=== PATIENT | female | born 1940 | race Hispanic/Latino ===

== ENCOUNTER 2016-07-09 17:06 | Inpatient (IN) | payer MEDICARE ==
--- NOTE | 2016-07-09 18:15 | Emergency Department Report ---
Chief Complaint: Dyspnea/Respdistress Stated Complaint: COPD/FARHEEN Time Seen by Provider: 07/09/16 18:05 - HPI History of Present Illness: PT sent to ED for evaluation of cough x 2 months. PT states her symptoms are worse if she tries to lay flat. PT states she can not sleep unless she is sitting up in recliner. PT states she uses her nebs 3 times a day. PT has hx of CA and is on chemo - ROS Review of Systems: + cough, productive - clear + orthopnea + wheezing + subjective fever (occasionally) - chest pain - Exam Vital Signs: Vital Signs 07/09/16 17:30 Temperature 97.9 F Pulse Rate 92 H Respiratory 18 Rate Blood Pressure 125/56 O2 Sat by Pulse 97 Oximetry Physical Exam: PT is alert and appropriate + wheezing No acute resp distress LLE with scar and edema MSE screening note: Focused history and physical exam performed. Due to findings the following was ordered: labs, ekg, xr ED Disposition for MSE Condition: Stable Referrals: PRIMARY CARE, [Primary Care Provider] - 3-5 Days
[2016-07-09 18:42] LABS: Hematocrit 27.4 % (30.3-42.9); Hemoglobin 8.6 gm/dl (10.1-14.3); Mean Corpuscular HGB Conc 31 % (30-34); Mean Corpuscular Hemoglobin 33 pg (28-32); Mean Corpuscular Volume 106 fl (79-97); Platelet Count 77 K/mm3 (140-440); Red Blood Count 2.59 M/mm3 (3.65-5.03); White Blood Count 4.8 K/mm3 (4.5-11.0)
[2016-07-09 18:50] LABS: INR 1.19 (0.87-1.13); Partial Thromboplastin Time 31.2 Sec. (24.2-36.6)
[2016-07-09 18:51] LABS: Anion Gap 19 mmol/L; BUN/Creatinine Ratio 21.53; Blood Urea Nitrogen 28 mg/dL (7-17); Calcium 9.1 mg/dL (8.4-10.2); Carbon Dioxide 28 mmol/L (22-30); Chloride 102.4 mmol/L (98-107); Glucose 172 mg/dL (65-100); Potassium 4.3 mmol/L (3.6-5.0); Sodium 145 mmol/L (137-145)
[2016-07-09 19:28] LABS: Basophils % (Manual) 0 % (0.0-1.8); Blastocytes % (Manual) 0 %
[2016-07-09 19:29] LABS: Anisocytosis 2+
[2016-07-09 19:30] LABS: Diff Status Complete; Platelet Estimate Consistent w Auto
[2016-07-09] MEDS ORDERED: LEVAQUIN 750MG/150ML 750 MG/150 ML BAG IV ONE (20:54)
--- NOTE | 2016-07-09 21:22 | Emergency Department Report ---
ED Shortness of Breath HPI - General Chief Complaint: Dyspnea/Respdistress Stated Complaint: COPD/FARHEEN Time Seen by Provider: 07/09/16 18:05 Source: patient, family Mode of arrival: Wheelchair Limitations: No Limitations - History of Present Illness Initial Comments: 75-year-old female with a past medical history metastatic breast cancer, COPD, PR, hypertension, hypothyroidism, and COPD presents to the hospital complains of shortness of breath 2 weeks. Patient has a cough productive of clear sputum. Patient has been having to use nebulized treatments frequently with minimal improvement. No complaints of chest pain or fever. Patient was recently treated with amoxicillin as per patient without improvement. Patient has lower extremity edema with left chronically greater than the right due to previous surgery to left distal leg. Patient receiving chemotherapy with last treatment 6 days ago. Patient does not use home oxygen. No pain reported. She was advised to come to the ER by PMD Dr. Dr. Alves - Related Data Home Medications Medication Instructions Recorded Confirmed Last Taken Alendronate Sodium [Fosamax] 70 mg PO 1XW 05/21/13 05/21/13 Unknown Aspirin [Aspirin TAB] 325 mg PO DAILY 05/21/13 05/21/13 Unknown Calcium Carbonate [Calcium] 500 mg PO DAILY 05/21/13 05/21/13 Unknown Cholecalciferol (Vitamin D3) 1,000 unit PO DAILY 05/21/13 05/21/13 Unknown [Vitamin D3] Folic Acid [Folvite] 1 mg PO DAILY 05/21/13 05/21/13 Unknown Levothyroxine [Synthroid] 25 mcg PO DAILY 05/21/13 05/21/13 Unknown Methotrexate 1 ml PO 1XW 05/21/13 05/21/13 Unknown Naproxen [Naprosyn TAB] 500 mg PO BID 05/21/13 05/21/13 Unknown Pravastatin (Nf) [Pravachol] 40 mg PO DAILY 05/21/13 05/21/13 Unknown Prednisone [predniSONE ([place]) ER 2.5 mg PO DAILY 05/21/13 05/21/13 Unknown TAB] Sucralfate [Carafate] 1 gm PO BID 05/21/13 05/21/13 Unknown amLODIPine [Norvasc] 5 mg PO DAILY 05/21/13 05/21/13 Unknown sulfaSALAzine [Azulfidine] 1,500 mg PO BID 05/21/13 05/21/13 Unknown Previous Rx's Medication Instructions Recorded Last Taken Type HYDROcodone/APAP 5-325 [[place] 1 each PO Q6HR PRN #40 tablet 05/23/13 Unknown Rx 5/325 mg] Allergies Allergy/AdvReac Type Severity Reaction Status Date / Time No Known Allergies Allergy Unverified 05/21/13 10:34 ED Review of Systems ROS: Stated complaint: COPD/FARHEEN Other details as noted in HPI Comment: All other systems reviewed and negative Other: Constitutional: No fevers chills Eyes: No eye pain visual changes ENT: No ear pain or throat pain Neck: Denies pain Respiratory: Her HPI Cardiovascular: Denies chest pain, palpitations, syncope GI: Denies abdominal pain, nausea, vomiting, diarrhea : Denies dysuria Musculoskeletal: Denies back pain Skin: Denies rash, lesions, erythema Neurologic: Denies headache, numbness, weakness Psychiatric: Denies suicidal ideation, hallucinations Hematological/lymphatic: Chronic bilateral leg edema ED Past Medical Hx - Past Medical History Hx Hypertension: Yes Hx Heart Attack/AMI: Yes (2002) Hx of Cancer: Yes (breast with metastatsis to liver & lymph) Hx Arthritis: Yes Hx COPD: Yes Additional medical history: Hypothyroid; goiter; Osteoporosis - Surgical History Past Surgical History?: Yes Hx Breast Surgery: Yes Additional Surgical History: L Leg, ectopic(1965). left breast removed. hernia repair x 2. intestinal blockage - Social History Smoking Status: Current Every Day Smoker Substance Use Type: None - Medications Home Medications: Home Medications Medication Instructions Recorded Confirmed Last Taken Type Alendronate Sodium [Fosamax] 70 mg PO 1XW 05/21/13 05/21/13 Unknown History Aspirin [Aspirin TAB] 325 mg PO DAILY 05/21/13 05/21/13 Unknown History Calcium Carbonate [Calcium] 500 mg PO DAILY 05/21/13 05/21/13 Unknown History Cholecalciferol (Vitamin D3) 1,000 unit PO DAILY 05/21/13 05/21/13 Unknown History [Vitamin D3] Folic Acid [Folvite] 1 mg PO DAILY 05/21/13 05/21/13 Unknown History Levothyroxine [Synthroid] 25 mcg PO DAILY 05/21/13 05/21/13 Unknown History Methotrexate 1 ml PO 1XW 05/21/13 05/21/13 Unknown History Naproxen [Naprosyn TAB] 500 mg PO BID 05/21/13 05/21/13 Unknown History Pravastatin (Nf) [Pravachol] 40 mg PO DAILY 05/21/13 05/21/13 Unknown History Prednisone [predniSONE ([place]) ER 2.5 mg PO DAILY 05/21/13 05/21/13 Unknown History TAB] Sucralfate [Carafate] 1 gm PO BID 05/21/13 05/21/13 Unknown History amLODIPine [Norvasc] 5 mg PO DAILY 05/21/13 05/21/13 Unknown History sulfaSALAzine [Azulfidine] 1,500 mg PO BID 05/21/13 05/21/13 Unknown History HYDROcodone/APAP 5-325 [[place] 1 each PO Q6HR PRN #40 tablet 05/23/13 Unknown Rx 5/325 mg] ED Physical Exam - General Limitations: No Limitations - Other Other exam information: General: No limitations, patient is alert in no acute distress Head exam: Atraumatic, normocephalic Eyes exam: Normal appearance ENT: Moist mucous membrane, normal oropharynx Neck exam: Normal inspection, full range of motion Respiratory exam: No wheezes, rales, crackles, or tachypnea, decreased breath sounds right base. Left mastectomy Cardiovascular: Regular rate and rhythm, systolic murmur Abdomen: Soft, nondistended, and nontender, with normal bowel sounds, no rebound, or guarding Extremity: Bilateral lower extremity edema left greater than right with postsurgical changes noted to the anterior distal left leg. Mild tenderness bilaterally to palpation erythema or warmth Back: Normal Inspection, full range of motion, no tenderness Neurologic: Alert, oriented x3, cranial nerves intact, no motor or sensory deficit Psychiatric: normal affect, normal mood Skin: Warm, dry, intact ED Course Vital Signs 07/09/16 07/09/16 07/09/16 17:30 21:55 22:52 Temperature 97.9 F Pulse Rate 92 H 85 85 Respiratory 18 20 20 Rate Blood Pressure 125/56 Blood Pressure 125/65 [Right] O2 Sat by Pulse 97 96 96 Oximetry - Reevaluation(s) Reevaluation #1: 07/09/16 23:07 pt is stable in the ED and does not require a nebulized treatment since no signs of wheezing or respiratory distress - Consultations Consultation #2: 07/09/16 Dr. Alves called prior just to my evaluation the patient. Case was discussed along with x-ray and laboratory findings at that time and informed him patient will be admitted to the hospital. ED Medical Decision Making - Lab Data Result diagrams: 07/09/16 18:19 07/09/16 18:19 Lab Results 07/09/16 07/09/16 07/09/16 Range/Units 18:19 18:19 18:19 WBC 4.8 (4.5-11.0) K/mm3 RBC 2.59 L (3.65-5.03) M/mm3 Hgb 8.6 L (10.1-14.3) gm/dl Hct 27.4 L (30.3-42.9) % MCV 106 H (79-97) fl MCH 33 H (28-32) pg MCHC 31 (30-34) % RDW 26.0 H (13.2-15.2) % Plt Count 77 L (140-440) K/mm3 Add Manual Diff Complete Total Counted 100 Seg Neuts % (Manual) 86.0 H (40.0-70.0) % Band Neutrophils % 0 % Lymphocytes % (Manual) 11.0 L (13.4-35.0) % Reactive Lymphs % (Man) 0 % Monocytes % (Manual) 1.0 (0.0-7.3) % Eosinophils % (Manual) 1.0 (0.0-4.3) % Basophils % (Manual) 0 (0.0-1.8) % Metamyelocytes % 1.0 % Myelocytes % 0 % Promyelocytes % 0 % Blast Cells % 0 % Nucleated RBC % Not Reportable Seg Neutrophils # Man 4.1 (1.8-7.7) K/mm3 Band Neutrophils # 0.0 K/mm3 Lymphocytes # (Manual) 0.5 L (1.2-5.4) K/mm3 Abs React Lymphs (Man) 0.0 K/mm3 Monocytes # (Manual) 0.0 (0.0-0.8) K/mm3 Eosinophils # (Manual) 0.0 (0.0-0.4) K/mm3 Basophils # (Manual) 0.0 (0.0-0.1) K/mm3 Metamyelocytes # 0.0 K/mm3 Myelocytes # 0.0 K/mm3 Promyelocytes # 0.0 K/mm3 Blast Cells # 0.0 K/mm3 WBC Morphology Not Reportable Hypersegmented Neuts Not Reportable Hyposegmented Neuts Not Reportable Hypogranular Neuts Not Reportable Smudge Cells Not Reportable Toxic Granulation Not Reportable Toxic Vacuolation Not Reportable Dohle Bodies Not Reportable Pelger-Huet Anomaly Not Reportable Sloane Rods Not Reportable Platelet Estimate Consistent w auto Clumped Platelets Not Reportable Plt Clumps, EDTA Not Reportable Large Platelets Not Reportable Giant Platelets Not Reportable Platelet Satelliting Not Reportable Plt Morphology Comment Not Reportable RBC Morphology Not Reportable Dimorphic RBCs Not Reportable Polychromasia Not Reportable Hypochromasia Not Reportable Poikilocytosis Not Reportable Anisocytosis 2+ Microcytosis Not Reportable Macrocytosis Not Reportable Spherocytes Not Reportable Pappenheimer Bodies Not Reportable Sickle Cells Not Reportable Target Cells Not Reportable Tear Drop Cells Not Reportable Ovalocytes Not Reportable Helmet Cells Not Reportable Cool-[place] Bodies Not Reportable Woodhull Rings Not Reportable Abel Cells Not Reportable Bite Cells Not Reportable Crenated Cell Not Reportable Elliptocytes Not Reportable Acanthocytes (Spur) Not Reportable Rouleaux Not Reportable Hemoglobin C Crystals Not Reportable Schistocytes Not Reportable Malaria parasites Not Reportable Johnson Bodies Not Reportable Hem Pathologist Commnt No PT (12.2-14.9) Sec. INR (0.87-1.13) APTT (24.2-36.6) Sec. Sodium 145 (137-145) mmol/L Potassium 4.3 (3.6-5.0) mmol/L Chloride 102.4 (98-107) mmol/L Carbon Dioxide 28 (22-30) mmol/L Anion Gap 19 mmol/L BUN 28 H (7-17) mg/dL Creatinine 1.3 H (0.7-1.2) mg/dL Estimated GFR 40 ml/min BUN/Creatinine Ratio 21.53 % Glucose 172 H (65-100) mg/dL Calcium 9.1 (8.4-10.2) mg/dL TIBC (250-450) mcg/dL Transferrin (192-382) mg/dl Troponin T < 0.010 (0.00-0.029) ng/mL NT-Pro-B Natriuret Pep 1293 H (0-900) pg/mL Blood Type Antibody Screen 07/09/16 07/09/16 07/09/16 Range/Units 18:19 20:53 20:53 WBC (4.5-11.0) K/mm3 RBC (3.65-5.03) M/mm3 Hgb (10.1-14.3) gm/dl Hct (30.3-42.9) % MCV (79-97) fl MCH (28-32) pg MCHC (30-34) % RDW (13.2-15.2) % Plt Count (140-440) K/mm3 Add Manual Diff Total Counted Seg Neuts % (Manual) (40.0-70.0) % Band Neutrophils % % Lymphocytes % (Manual) (13.4-35.0) % Reactive Lymphs % (Man) % Monocytes % (Manual) (0.0-7.3) % Eosinophils % (Manual) (0.0-4.3) % Basophils % (Manual) (0.0-1.8) % Metamyelocytes % % Myelocytes % % Promyelocytes % % Blast Cells % % Nucleated RBC % Seg Neutrophils # Man (1.8-7.7) K/mm3 Band Neutrophils # K/mm3 Lymphocytes # (Manual) (1.2-5.4) K/mm3 Abs React Lymphs (Man) K/mm3 Monocytes # (Manual) (0.0-0.8) K/mm3 Eosinophils # (Manual) (0.0-0.4) K/mm3 Basophils # (Manual) (0.0-0.1) K/mm3 Metamyelocytes # K/mm3 Myelocytes # K/mm3 Promyelocytes # K/mm3 Blast Cells # K/mm3 WBC Morphology Hypersegmented Neuts Hyposegmented Neuts Hypogranular Neuts Smudge Cells Toxic Granulation Toxic Vacuolation Dohle Bodies Pelger-Huet Anomaly Sloane Rods Platelet Estimate Clumped Platelets Plt Clumps, EDTA Large Platelets Giant Platelets Platelet Satelliting Plt Morphology Comment RBC Morphology Dimorphic RBCs Polychromasia Hypochromasia Poikilocytosis Anisocytosis Microcytosis Macrocytosis Spherocytes Pappenheimer Bodies Sickle Cells Target Cells Tear Drop Cells Ovalocytes Helmet Cells Cool-[place] Bodies [place] Rings Abel Cells Bite Cells Crenated Cell Elliptocytes Acanthocytes (Spur) Rouleaux Hemoglobin C Crystals Schistocytes Malaria parasites Johnson Bodies Hem Pathologist Commnt PT 15.0 H (12.2-14.9) Sec. INR 1.19 H (0.87-1.13) APTT 31.2 (24.2-36.6) Sec. Sodium (137-145) mmol/L Potassium (3.6-5.0) mmol/L Chloride (98-107) mmol/L Carbon Dioxide (22-30) mmol/L Anion Gap mmol/L BUN (7-17) mg/dL Creatinine (0.7-1.2) mg/dL Estimated GFR ml/min BUN/Creatinine Ratio % Glucose (65-100) mg/dL Calcium (8.4-10.2) mg/dL TIBC 264.60 (250-450) mcg/dL Transferrin 189 L (192-382) mg/dl Troponin T (0.00-0.029) ng/mL NT-Pro-B Natriuret Pep (0-900) pg/mL Blood Type AB POSITIVE Antibody Screen Negative - EKG Data -: EKG Interpreted by Me (sinus rate 86 with LVH with re-pole) - EKG Data When compared to previous EKG there are: no significant change (compared to ) - Radiology Data Radiology results: image reviewed (chest x-ray: A right pleural effusion) - Medical Decision Making Patient has a right pleural effusion which could be cancer related, CHF related , or infectious related. She was covered with Levaquin since she had received been on amoxicillin. - Differential Diagnosis CHF, pneumonia, bronchitis, COPD Critical Care Time: No Critical care attestation.: If time is entered above; I have spent that time in minutes in the direct care of this critically ill patient, excluding procedure time. ED Disposition Clinical Impression: Pleural effusion, right, SOB (shortness of breath), COPD (chronic obstructive pulmonary disease), CHF (congestive heart failure), Metastatic breast cancer, Anemia, Thrombocytopenia Disposition: OP ADMITTED IP TO THIS HOSP Is pt being admited?: Yes Condition: Stable Time of Disposition: 21:22 (Dr Torre/hosp)
[2016-07-09 21:32] LABS: Total Iron Binding Capacity 264.6 mcg/dL (250-450)
--- NOTE | 2016-07-09 22:29 | History and Physical Report ---
History of Present Illness Date of examination: 07/09/16 History of present illness: 75-year-old man with a history of metastatic breast cancer, hypertension, CHF, COPD, hypothyroidism, osteoporosis, coronary artery disease comes emergency room with complaints of shortness of breath, PND, orthopnea and lower extremity edema. She also complaining of a cough productive of white phlegm, no fever chills Patient denies chest pain, palpitation, abdominal pain, hematochezia, dysuria, frequency, focal weakness, dysarthria, fever chills, polydipsia polyuria, hot or cold intolerance, easy bruisability, or rash or bleeding from mucosal membrane, rhinorrhea, epistaxis, earache, tinnitus, blurry vision, eye discharge , anxiety, depression. Other review of systems negative PAST SURGICAL HISTORY: Left mastectomy, hernia repair 2, surgery for obstruction, but SOCIAL HISTORY: Smoke a pack a day, no alcohol or drugs FAMILY HISTORY: Hypertension Medications and Allergies Allergies Allergy/AdvReac Type Severity Reaction Status Date / Time No Known Allergies Allergy Unverified 05/21/13 10:34 Home Medications Medication Instructions Recorded Confirmed Last Taken Type Alendronate Sodium [Fosamax] 70 mg PO 1XW 05/21/13 07/10/16 1 Day Ago History Aspirin [Aspirin TAB] 325 mg PO DAILY 05/21/13 07/10/16 1 Day Ago History Calcium Carbonate [Calcium] 500 mg PO DAILY 05/21/13 07/10/16 1 Day Ago History Cholecalciferol (Vitamin D3) 1,000 unit PO DAILY 05/21/13 07/10/16 1 Day Ago History [Vitamin D3] Folic Acid [Folvite] 1 mg PO DAILY 05/21/13 07/10/16 1 Day Ago History Levothyroxine [Synthroid] 25 mcg PO DAILY 05/21/13 07/10/16 1 Day Ago History Methotrexate 1 ml PO 1XW 05/21/13 07/10/16 1 Day Ago History Naproxen [Naprosyn TAB] 500 mg PO BID 05/21/13 07/10/16 1 Day Ago History Pravastatin (Nf) [Pravachol] 40 mg PO DAILY 05/21/13 07/10/16 1 Day Ago History Prednisone [predniSONE ([place]) ER 2.5 mg PO DAILY 05/21/13 07/10/16 1 Day Ago History TAB] Sucralfate [Carafate] 1 gm PO BID 05/21/13 07/10/16 1 Day Ago History amLODIPine [Norvasc] 5 mg PO DAILY 05/21/13 07/10/16 1 Day Ago History sulfaSALAzine [Azulfidine] 1,500 mg PO BID 05/21/13 07/10/16 1 Day Ago History HYDROcodone/APAP 5-325 [[place] 1 each PO Q6HR PRN #40 tablet 05/23/13 07/10/16 1 Day Ago Rx 5-325 mg TAB] Albuterol Sulfate [Ventolin HFA] 2 puff IH Q4H PRN #1 pump 07/12/16 Unknown Rx Carvedilol [Coreg] 3.125 mg PO BID #60 tablet 07/12/16 Unknown Rx Prednisone [predniSONE 5 mg (6-Day 5 mg PO .TAPER #1 tab.ds.pk 07/12/16 Unknown Rx Pack, 21 Tabs)] Exam - Physical Exam Narrative exam: Gen. appearance: Patient lying in bed, no apparent distress HEENT: Normocephalic, atraumatic, pupils equally round and reactive to light, extraocular movement intact, and no sclericterus,. No JVD or thyromegaly or nodule,neck supple, no carotid bruit ,mucous membranes moist, no exudate or erythema Heart: S1, S2, regular rate and rhythm Lungs: crackles bilaterally, breathing comfortable Abdomen: Positive bowel sounds, nontender, nondistended, no organomegaly Extremity:+edema, no cyanosis, clubbing Skin: No rash, nodules, warm, dry Neuro: Oriented 3, cranial nerves II-12 intact, speech is fluent, motor and sensory intact - Constitutional Vitals: Temp Pulse Resp BP Pulse Ox 97.9 F 92 H 18 125/56 97 07/09/16 17:30 07/09/16 17:30 07/09/16 17:30 07/09/16 17:30 07/09/16 17:30 Results - Labs CBC & Chem 7: 07/12/16 04:56 07/10/16 05:16 Labs: Abnormal lab results 07/09/16 07/09/16 07/09/16 Range/Units 18:19 18:19 18:19 RBC 2.59 L (3.65-5.03) M/mm3 Hgb 8.6 L (10.1-14.3) gm/dl Hct 27.4 L (30.3-42.9) % MCV 106 H (79-97) fl MCH 33 H (28-32) pg RDW 26.0 H (13.2-15.2) % Plt Count 77 L (140-440) K/mm3 Seg Neuts % (Manual) 86.0 H (40.0-70.0) % Lymphocytes % (Manual) 11.0 L (13.4-35.0) % Lymphocytes # (Manual) 0.5 L (1.2-5.4) K/mm3 PT (12.2-14.9) Sec. INR (0.87-1.13) BUN 28 H (7-17) mg/dL Creatinine 1.3 H (0.7-1.2) mg/dL Glucose 172 H (65-100) mg/dL Transferrin (192-382) mg/dl NT-Pro-B Natriuret Pep 1293 H (0-900) pg/mL 07/09/16 07/09/16 Range/Units 18:19 20:53 RBC (3.65-5.03) M/mm3 Hgb (10.1-14.3) gm/dl Hct (30.3-42.9) % MCV (79-97) fl MCH (28-32) pg RDW (13.2-15.2) % Plt Count (140-440) K/mm3 Seg Neuts % (Manual) (40.0-70.0) % Lymphocytes % (Manual) (13.4-35.0) % Lymphocytes # (Manual) (1.2-5.4) K/mm3 PT 15.0 H (12.2-14.9) Sec. INR 1.19 H (0.87-1.13) BUN (7-17) mg/dL Creatinine (0.7-1.2) mg/dL Glucose (65-100) mg/dL Transferrin 189 L (192-382) mg/dl NT-Pro-B Natriuret Pep (0-900) pg/mL Assessment and Plan CHF exacerbation probably diastolic dysfunction Coronary artery disease Hypertension Renal insufficiency COPD Metastatic breast cancer Hypothyroidism Osteoporosis Admits medicine Diuresed with IV Lasix Start Beta merlene, aspirin, hold JHOANA inhibitor due to renal insufficiency Check cardiac enzymes, d-dimer, echo, consult cardiology Start DVT prophylaxis
[2016-07-09] MEDS ORDERED: DULCOLAX PR PRN (22:30)
[2016-07-09] MEDS ORDERED: ZOFRAN IV PRN (22:30)
[2016-07-09] MEDS ORDERED: NORCO 5/325 PO PRN (23:24)
[2016-07-10] MEDS: SYNTHROID PO SCH (05:36)
[2016-07-10] MEDS: LASIX IV SCH ×2 (05:36→18:34)
[2016-07-10] MEDS ORDERED: LASIX IV SCH (06:00)
[2016-07-10 06:29] LABS: Hemoglobin 7.3 gm/dl (10.1-14.3); Mean Corpuscular HGB Conc 32 % (30-34); Mean Corpuscular Hemoglobin 33 pg (28-32); Mean Corpuscular Volume 104 fl (79-97); Red Blood Count 2.21 M/mm3 (3.65-5.03); White Blood Count 2.6 K/mm3 (4.5-11.0)
[2016-07-10 06:33] LABS: Platelet Count 60 K/mm3 (140-440); Red Cell Distribution Width 25.6 % (13.2-15.2)
[2016-07-10 06:36] LABS: Calcium 8.4 mg/dL (8.4-10.2); Chloride 103.6 mmol/L (98-107); Potassium 4.2 mmol/L (3.6-5.0)
--- NOTE | 2016-07-10 07:36 | XRay Report ---
ROUTINE CHEST, TWO VIEWS: HISTORY: Shortness of breath. Compared to 08/08/11. Moderate cardiomegaly, mild pulmonary venous congestion and moderate right pleural effusion are identified. The lungs appear hyperinflated. There is compressive atelectasis at the right lung base, otherwise, the lungs are generally clear. No convincing pneumonia or pneumothorax. Right Itovxt-i-Pwki terminates in the mid to lower SVC. IMPRESSION: COPD with superimposed CHF.
[2016-07-10 08:20] LABS: Anisocytosis 2+; Basophils % (Manual) 0 % (0.0-1.8); Blastocytes % (Manual) 0 %
[2016-07-10 08:21] LABS: Hypochromasia 1+
[2016-07-10 08:23] LABS: Diff Status Complete
--- NOTE | 2016-07-10 09:33 | Admit Criteria Form ---
Admission Criteria Documentation: PLEURAL EFFUSION Clinical Indications for Admission to Inpatient Care (Place 'X' for any and all applicable criteria): Admission is indicated for ANY ONE of the following (1)(2)(3): [ ]I. Pneumonia-related effusion requiring drainage as indicated by ANY ONE of the following [A]: [ ]a) Large pleural effusion (symptomatic or greater than one-half of hemithorax) [ ]b) Loculated effusion [ ]c) Pleural thickening [ ]d) Pleural fluid analysis results, including ANY ONE of the following: [ ]i) Positive Gram stain or culture for bacteria [ ]ii) Pus [ ]iii) pH less than 7.20 [ X]II. Inpatient admission required rather than observation care (Also use Pleural Effusion: Observation Care criteria as appropriate) because of ANY ONE of the following: [ ]a) Hemodynamic instability that is severe or persistent [ ]b) Respiratory distress that is severe or persistent [ ]c) Complication of drainage (e.g., pneumothorax) that requires inpatient care [ ]d) Etiology that requires inpatient care (e.g., pulmonary embolism , trauma) [ ]e) Severe pain requiring acute inpatient management [ ]f) Supplemental O2 or respiration drug for over 24 hrs that are performable only in an inpatient setting [ ]g) Chest tube placement with active evacuation (e.g., suction, drainage) [ ]h) Pulmonary artery catheter monitoring [ ]i) Epidural analgesia (8) [ ]j) Continuous IV infusion of anticoagulation, platelet inhibitor, vasoactive, or antiarrhythmic medication. [X ]k) Other condition, treatment or monitoring requiring inpatient admission [ ]l) Immediate inpatient surgery [ ]III. Hemothorax [ ]IV. Empyema [ ]V. Pleural effusion with concomitant pneumothorax [ ]. Recurrent or malignant pleural effusion requiring pleurodesis (4) Extended stay beyond goal length of stay may be needed for (27)(28): [ ]a) Empyema or complicated parapneumonic effusion (24)(29) [ ]b) Malignant pleural effusion (4) [ ]c) Pleural effusion due to trauma or perforated esophagus [ ]d) Pleural effusion due to pulmonary embolism (30) [ ]e) Clinically significant re-expansion pulmonary edema [ ]f) Hemothorax [ ]g) Renal failure [ ]h) Trapped lung (e.g., benign or malignant thickened pleura preventing lung re-expansion) (31) [ ]i) Underlying etiology necessitates ongoing inpatient care (e.g., pneumonia, heart failure, malignancy) [ ]j) Complications of thoracentesis, thoracostomy tube, or pleural cath. placement The original [facility] [employer] content created by [facility] has been revised. The portions of the content which have been revised are identified through the use of italic text or in bold, and [facility] has neither reviewed nor approved the modified material. All other unmodified content is copyright [facility]. Please see references footnoted in the original [facility] [employer] edition 2016 Admission Criteria Met: Yes
[2016-07-10] MEDS ORDERED: ASPIRIN PO SCH (10:00)
[2016-07-10] MEDS ORDERED: LOVENOX SUB-Q SCH (10:00)
[2016-07-10] MEDS: DELTASONE PO SCH (10:09)
[2016-07-10] MEDS: FOLVITE PO SCH (10:09)
[2016-07-10] MEDS: VITAMIN D3 PO SCH (10:09)
[2016-07-10] MEDS: ASPIRIN PO SCH (10:09)
[2016-07-10] MEDS: CARAFATE PO SCH ×2 (10:10→22:38)
[2016-07-10] MEDS: AZULFIDINE PO SCH ×2 (10:10→22:39)
[2016-07-10] MEDS: OSCAL PO SCH (10:10)
[2016-07-10] MEDS: COREG PO SCH ×2 (10:11→22:38)
--- NOTE | 2016-07-10 10:19 | Progress Note ---
Assessment and Plan Assessment and plan: Acute resp failure due to COPD exacerbation Metastatic breast cancer Hypertension History Interval history: shortness of breath, leg edema Hospitalist Physical - Physical exam Narrative exam: Gen: not in acute distress HEENT: normocephalic,atraumatic Neck :supple, no JVD Lungs: clear to auscultation bilaterally, no crackles no wheezes Heart: S1 and S2 regular, no murmurs no gallops, Abdomen: soft nontender, nondistended, normal bowel sounds Extremities: no edema, no clubbing or cyanosis Neuro: Awake alert oriented Psych: Normal mood - Constitutional Vitals: Temp Pulse Resp BP Pulse Ox 97.6 F 87 20 120/61 95 07/10/16 08:00 07/10/16 08:00 07/10/16 08:00 07/10/16 08:00 07/10/16 08:00 Results - Labs CBC & Chem 7: 07/10/16 05:16 07/10/16 05:16 Labs: Laboratory Last Values WBC 2.6 K/mm3 (4.5-11.0) L 07/10/16 05:16 RBC 2.21 M/mm3 (3.65-5.03) L 07/10/16 05:16 Hgb 7.3 gm/dl (10.1-14.3) L 07/10/16 05:16 Hct 23.0 % (30.3-42.9) L 07/10/16 05:16 MCV 104 fl (79-97) H 07/10/16 05:16 MCH 33 pg (28-32) H 07/10/16 05:16 MCHC 32 % (30-34) 07/10/16 05:16 RDW 25.6 % (13.2-15.2) H 07/10/16 05:16 Plt Count 60 K/mm3 (140-440) L 07/10/16 05:16 Add Manual Diff Complete 07/10/16 05:16 Total Counted 100 07/10/16 05:16 Seg Neuts % (Manual) 66.0 % (40.0-70.0) 07/10/16 05:16 Band Neutrophils % 12.0 % 07/10/16 05:16 Lymphocytes % (Manual) 15.0 % (13.4-35.0) 07/10/16 05:16 Reactive Lymphs % (Man) 0 % 07/10/16 05:16 Monocytes % (Manual) 6.0 % (0.0-7.3) 07/10/16 05:16 Eosinophils % (Manual) 1.0 % (0.0-4.3) 07/10/16 05:16 Basophils % (Manual) 0 % (0.0-1.8) 07/10/16 05:16 Metamyelocytes % 0 % 07/10/16 05:16 Myelocytes % 0 % 07/10/16 05:16 Promyelocytes % 0 % 07/10/16 05:16 Blast Cells % 0 % 07/10/16 05:16 Nucleated RBC % Not Reportable 07/10/16 05:16 Seg Neutrophils # Man 1.7 K/mm3 (1.8-7.7) L 07/10/16 05:16 Band Neutrophils # 0.3 K/mm3 07/10/16 05:16 Lymphocytes # (Manual) 0.4 K/mm3 (1.2-5.4) L 07/10/16 05:16 Abs React Lymphs (Man) 0.0 K/mm3 07/10/16 05:16 Monocytes # (Manual) 0.2 K/mm3 (0.0-0.8) 07/10/16 05:16 Eosinophils # (Manual) 0.0 K/mm3 (0.0-0.4) 07/10/16 05:16 Basophils # (Manual) 0.0 K/mm3 (0.0-0.1) 07/10/16 05:16 Metamyelocytes # 0.0 K/mm3 07/10/16 05:16 Myelocytes # 0.0 K/mm3 07/10/16 05:16 Promyelocytes # 0.0 K/mm3 07/10/16 05:16 Blast Cells # 0.0 K/mm3 07/10/16 05:16 WBC Morphology Not Reportable 07/10/16 05:16 Hypersegmented Neuts Not Reportable 07/10/16 05:16 Hyposegmented Neuts Not Reportable 07/10/16 05:16 Hypogranular Neuts Not Reportable 07/10/16 05:16 Smudge Cells Not Reportable 07/10/16 05:16 Toxic Granulation Not Reportable 07/10/16 05:16 Toxic Vacuolation Not Reportable 07/10/16 05:16 Dohle Bodies Not Reportable 07/10/16 05:16 Pelger-Huet Anomaly Not Reportable 07/10/16 05:16 Sloane Rods Not Reportable 07/10/16 05:16 Platelet Estimate Not Reportable 07/10/16 05:16 Clumped Platelets Not Reportable 07/10/16 05:16 Plt Clumps, EDTA Not Reportable 07/10/16 05:16 Large Platelets Not Reportable 07/10/16 05:16 Giant Platelets Not Reportable 07/10/16 05:16 Platelet Satelliting Not Reportable 07/10/16 05:16 Plt Morphology Comment Not Reportable 07/10/16 05:16 RBC Morphology Not Reportable 07/10/16 05:16 Dimorphic RBCs Not Reportable 07/10/16 05:16 Polychromasia Not Reportable 07/10/16 05:16 Hypochromasia 1+ 07/10/16 05:16 Poikilocytosis Not Reportable 07/10/16 05:16 Anisocytosis 2+ 07/10/16 05:16 Microcytosis Not Reportable 07/10/16 05:16 Macrocytosis Not Reportable 07/10/16 05:16 Spherocytes Not Reportable 07/10/16 05:16 Pappenheimer Bodies Not Reportable 07/10/16 05:16 Sickle Cells Not Reportable 07/10/16 05:16 Target Cells Not Reportable 07/10/16 05:16 Tear Drop Cells Not Reportable 07/10/16 05:16 Ovalocytes Not Reportable 07/10/16 05:16 Helmet Cells Not Reportable 07/10/16 05:16 [place] Bodies Not Reportable 07/10/16 05:16 [place] Rings Not Reportable 07/10/16 05:16 [place] Cells Not Reportable 07/10/16 05:16 Bite Cells Not Reportable 07/10/16 05:16 Crenated Cell Not Reportable 07/10/16 05:16 Elliptocytes Not Reportable 07/10/16 05:16 Acanthocytes (Spur) Not Reportable 07/10/16 05:16 Rouleaux Not Reportable 07/10/16 05:16 Hemoglobin C Crystals Not Reportable 07/10/16 05:16 Schistocytes Not Reportable 07/10/16 05:16 Malaria parasites Not Reportable 07/10/16 05:16 Johnson Bodies Not Reportable 07/10/16 05:16 Hem Pathologist Commnt No 07/10/16 05:16 PT 15.0 Sec. (12.2-14.9) H 07/09/16 18:19 INR 1.19 (0.87-1.13) H 07/09/16 18:19 APTT 31.2 Sec. (24.2-36.6) 07/09/16 18:19 Sodium 140 mmol/L (137-145) 07/10/16 05:16 Potassium 4.2 mmol/L (3.6-5.0) 07/10/16 05:16 Chloride 103.6 mmol/L (98-107) 07/10/16 05:16 Carbon Dioxide 28 mmol/L (22-30) 07/10/16 05:16 Anion Gap 13 mmol/L 07/10/16 05:16 BUN 26 mg/dL (7-17) H 07/10/16 05:16 Creatinine 1.0 mg/dL (0.7-1.2) 07/10/16 05:16 Estimated GFR 54 ml/min 07/10/16 05:16 BUN/Creatinine Ratio 26.00 % 07/10/16 05:16 Glucose 78 mg/dL (65-100) 07/10/16 05:16 Calcium 8.4 mg/dL (8.4-10.2) 07/10/16 05:16 Iron 20 ug/dL (37-170) L 07/09/16 20:53 TIBC 264.60 mcg/dL (250-450) 07/09/16 20:53 % Saturation 7.56 % 07/09/16 20:53 Transferrin 189 mg/dl (192-382) L 07/09/16 20:53 Troponin T < 0.010 ng/mL (0.00-0.029) 07/09/16 18:19 NT-Pro-B Natriuret Pep 1293 pg/mL (0-900) H 07/09/16 18:19 Blood Type AB POSITIVE 07/09/16 20:53 Antibody Screen Negative 07/09/16 20:53
--- NOTE | 2016-07-10 11:25 | Consultation ---
History of Present Illness Consult date: 07/10/16 Consult reason: shortness of breath History of present illness: Patient admitted with shortness of breath and hypoxia. Patient has advanced COPD and stage IV metastatic breast cancer. She denies chest pain. Most recent work-up done in 2012 showing normal LVEF with no evidence of ischemia by MPI. Past History Past Medical History: cancer, COPD, other (osteoporosis) Past Surgical History: mastectomy Social history: no significant social history Family history: no significant family history Medications and Allergies Allergies Allergy/AdvReac Type Severity Reaction Status Date / Time No Known Allergies Allergy Unverified 05/21/13 10:34 Home Medications Medication Instructions Recorded Confirmed Last Taken Type Alendronate Sodium [Fosamax] 70 mg PO 1XW 05/21/13 07/10/16 1 Day Ago History Aspirin [Aspirin TAB] 325 mg PO DAILY 05/21/13 07/10/16 1 Day Ago History Calcium Carbonate [Calcium] 500 mg PO DAILY 05/21/13 07/10/16 1 Day Ago History Cholecalciferol (Vitamin D3) 1,000 unit PO DAILY 05/21/13 07/10/16 1 Day Ago History [Vitamin D3] Folic Acid [Folvite] 1 mg PO DAILY 05/21/13 07/10/16 1 Day Ago History Levothyroxine [Synthroid] 25 mcg PO DAILY 05/21/13 07/10/16 1 Day Ago History Methotrexate 1 ml PO 1XW 05/21/13 07/10/16 1 Day Ago History Naproxen [Naprosyn TAB] 500 mg PO BID 05/21/13 07/10/16 1 Day Ago History Pravastatin (Nf) [Pravachol] 40 mg PO DAILY 05/21/13 07/10/16 1 Day Ago History Prednisone [predniSONE ([place]) ER 2.5 mg PO DAILY 05/21/13 07/10/16 1 Day Ago History TAB] Sucralfate [Carafate] 1 gm PO BID 05/21/13 07/10/16 1 Day Ago History amLODIPine [Norvasc] 5 mg PO DAILY 05/21/13 07/10/16 1 Day Ago History sulfaSALAzine [Azulfidine] 1,500 mg PO BID 05/21/13 07/10/16 1 Day Ago History HYDROcodone/APAP 5-325 [[place] 1 each PO Q6HR PRN #40 tablet 05/23/13 07/10/16 1 Day Ago Rx 5/325 mg] Active Meds: Active Medications Acetaminophen (Tylenol) 650 mg PO Q4H PRN PRN Reason: Pain MILD(1-3)/Fever >100.5/PATEL Acetaminophen/Hydrocodone Bitart ([place] 5/325) 1 each PO Q6H PRN PRN Reason: Pain Aspirin (Aspirin) 325 mg PO QDAY [facility] Last Admin: 07/10/16 10:09 Dose: 325 mg Bisacodyl (Dulcolax) 10 mg [place] QDAY PRN PRN Reason: Constipation unrelieved by [facility] [place] Calcium Carbonate/Glycine (Oscal) 1,250 mg PO DAILY [facility] Last Admin: 07/10/16 10:10 Dose: 1,250 mg Carvedilol (Coreg) 3.125 mg PO BID [facility] Last Admin: 07/10/16 10:11 Dose: 3.125 mg Cholecalciferol (Vitamin D3) 1,000 unit PO DAILY [facility] Last Admin: 07/10/16 10:09 Dose: 1,000 unit Folic Acid (Folvite) 1 mg PO DAILY [facility] Last Admin: 07/10/16 10:09 Dose: 1 mg Furosemide (Lasix) 20 mg IV BID@0600,1800 [facility] Last Admin: 07/10/16 05:36 Dose: 20 mg Levothyroxine Sodium (Synthroid) 25 mcg PO 0600 [facility] Last Admin: 07/10/16 05:36 Dose: 25 mcg Magnesium Hydroxide (Milk Of Magnesia) 30 ml PO Q4H PRN PRN Reason: Constipation Ondansetron HCl (Zofran) 4 mg IV Q8H PRN PRN Reason: N/V unrelieved by [facility] Prednisone (Deltasone) 2.5 mg PO DAILY [facility] Last Admin: 07/10/16 10:09 Dose: 2.5 mg Sucralfate (Carafate) 1 gm PO BID [facility] Last Admin: 07/10/16 10:10 Dose: 1 gm Sulfasalazine (Azulfidine) 1,500 mg PO BID [facility] Last Admin: 07/10/16 10:10 Dose: 1,500 mg Review of Systems All systems: negative Physical Examination Vital Signs Temp Pulse Resp BP Pulse Ox 97.9 F 92 H 18 125/56 97 07/09/16 17:30 07/09/16 17:30 07/09/16 17:30 07/09/16 17:30 07/09/16 17:30 General appearance: no acute distress HEENT: Positive: Pallor Neck: Positive: neck supple. Negative: JVD/HJR Cardiac: Positive: Reg Rate and Rhythm, Systolic Murmur Lungs: Positive: Decreased Breath Sounds Abdomen: Positive: Soft Extremities: Present: +2 Edema Results 07/10/16 05:16 07/10/16 05:16 CBC 07/10/16 Range/Units 05:16 WBC 2.6 L (4.5-11.0) K/mm3 RBC 2.21 L (3.65-5.03) M/mm3 Hgb 7.3 L (10.1-14.3) gm/dl Hct 23.0 L (30.3-42.9) % Plt Count 60 L (140-440) K/mm3 Comprehensive Metabolic Panel 07/10/16 Range/Units 05:16 Sodium 140 (137-145) mmol/L Potassium 4.2 (3.6-5.0) mmol/L Chloride 103.6 (98-107) mmol/L Carbon Dioxide 28 (22-30) mmol/L BUN 26 H (7-17) mg/dL Creatinine 1.0 (0.7-1.2) mg/dL Glucose 78 (65-100) mg/dL Calcium 8.4 (8.4-10.2) mg/dL EKG interpretations - Telemetry EKG Rhythm: Sinus Rhythm Assessment and Plan Shortness of breath and hypoxia predominantly due to COPD CXR showing moderate size right pleural effusion (? tumor related) No heart failure signs on exam or CXR Metastatic breast cancer s/p mastectomy and chemotherapy Pancytopenia Chronic LE edema Recommendations: Agree with gentle diuresis while closely monitoring renal function (caution with overdiuresis as patient is not excessively volume overloaded) Obtain echocardiogram to re-evaluate LVEF No further invasive or ischemic cardiac work-up is planned
--- NOTE | 2016-07-10 11:33 | Consultation ---
History of Present Illness Consult date: 07/10/16 Consult reason: congestive heart failure History of present illness: This is a 75yr old woman with a history of metastatic breast cancer, on currently on chemo therapy, COPD not on home oxygen who presented to the ED with complaints of shortness of breath and coughs. Patient report no relief from nebulizer treatments at home. She denies chest pain. Patient reports chronic left lower extremity edema from history of surgery due to osteoporosis. Chest x-ray reports a right pleural effusion with mild congestion. Cardiac consultation requested for CHF evaluation. Past History Past Medical History: cancer, COPD, other (osteoporosis) Past Surgical History: mastectomy Social history: no significant social history Family history: no significant family history Medications and Allergies Allergies Allergy/AdvReac Type Severity Reaction Status Date / Time No Known Allergies Allergy Unverified 05/21/13 10:34 Home Medications Medication Instructions Recorded Confirmed Last Taken Type Alendronate Sodium [Fosamax] 70 mg PO 1XW 05/21/13 07/10/16 1 Day Ago History Aspirin [Aspirin TAB] 325 mg PO DAILY 05/21/13 07/10/16 1 Day Ago History Calcium Carbonate [Calcium] 500 mg PO DAILY 05/21/13 07/10/16 1 Day Ago History Cholecalciferol (Vitamin D3) 1,000 unit PO DAILY 05/21/13 07/10/16 1 Day Ago History [Vitamin D3] Folic Acid [Folvite] 1 mg PO DAILY 05/21/13 07/10/16 1 Day Ago History Levothyroxine [Synthroid] 25 mcg PO DAILY 05/21/13 07/10/16 1 Day Ago History Methotrexate 1 ml PO 1XW 05/21/13 07/10/16 1 Day Ago History Naproxen [Naprosyn TAB] 500 mg PO BID 05/21/13 07/10/16 1 Day Ago History Pravastatin (Nf) [Pravachol] 40 mg PO DAILY 05/21/13 07/10/16 1 Day Ago History Prednisone [predniSONE ([place]) ER 2.5 mg PO DAILY 05/21/13 07/10/16 1 Day Ago History TAB] Sucralfate [Carafate] 1 gm PO BID 05/21/13 07/10/16 1 Day Ago History amLODIPine [Norvasc] 5 mg PO DAILY 05/21/13 07/10/16 1 Day Ago History sulfaSALAzine [Azulfidine] 1,500 mg PO BID 05/21/13 07/10/16 1 Day Ago History HYDROcodone/APAP 5-325 [[place] 1 each PO Q6HR PRN #40 tablet 05/23/13 07/10/16 1 Day Ago Rx 5/325 mg] Active Meds: Active Medications Acetaminophen (Tylenol) 650 mg PO Q4H PRN PRN Reason: Pain MILD(1-3)/Fever >100.5/PATEL Acetaminophen/Hydrocodone Bitart ([place] 5/325) 1 each PO Q6H PRN PRN Reason: Pain Aspirin (Aspirin) 325 mg PO QDAY [facility] Last Admin: 07/10/16 10:09 Dose: 325 mg Bisacodyl (Dulcolax) 10 mg [place] QDAY PRN PRN Reason: Constipation unrelieved by [facility] [place] Calcium Carbonate/Glycine (Oscal) 1,250 mg PO DAILY [facility] Last Admin: 07/10/16 10:10 Dose: 1,250 mg Carvedilol (Coreg) 3.125 mg PO BID [facility] Last Admin: 07/10/16 10:11 Dose: 3.125 mg Cholecalciferol (Vitamin D3) 1,000 unit PO DAILY [facility] Last Admin: 07/10/16 10:09 Dose: 1,000 unit Folic Acid (Folvite) 1 mg PO DAILY [facility] Last Admin: 07/10/16 10:09 Dose: 1 mg Furosemide (Lasix) 20 mg IV BID@0600,1800 [facility] Last Admin: 07/10/16 05:36 Dose: 20 mg Levothyroxine Sodium (Synthroid) 25 mcg PO 0600 [facility] Last Admin: 07/10/16 05:36 Dose: 25 mcg Magnesium Hydroxide (Milk Of Magnesia) 30 ml PO Q4H PRN PRN Reason: Constipation Ondansetron HCl (Zofran) 4 mg IV Q8H PRN PRN Reason: N/V unrelieved by [facility] Prednisone (Deltasone) 2.5 mg PO DAILY [facility] Last Admin: 07/10/16 10:09 Dose: 2.5 mg Sucralfate (Carafate) 1 gm PO BID [facility] Last Admin: 07/10/16 10:10 Dose: 1 gm Sulfasalazine (Azulfidine) 1,500 mg PO BID [facility] Last Admin: 07/10/16 10:10 Dose: 1,500 mg Physical Examination Vital Signs Temp Pulse Resp BP Pulse Ox 97.9 F 92 H 18 125/56 97 07/09/16 17:30 07/09/16 17:30 07/09/16 17:30 07/09/16 17:30 07/09/16 17:30 General appearance: no acute distress HEENT: Positive: PERRL Neck: Positive: trachea midline Cardiac: Positive: Reg Rate and Rhythm, Audible Murmur Results 07/10/16 05:16 07/10/16 05:16 CBC 07/10/16 Range/Units 05:16 WBC 2.6 L (4.5-11.0) K/mm3 RBC 2.21 L (3.65-5.03) M/mm3 Hgb 7.3 L (10.1-14.3) gm/dl Hct 23.0 L (30.3-42.9) % Plt Count 60 L (140-440) K/mm3 Comprehensive Metabolic Panel 07/10/16 Range/Units 05:16 Sodium 140 (137-145) mmol/L Potassium 4.2 (3.6-5.0) mmol/L Chloride 103.6 (98-107) mmol/L Carbon Dioxide 28 (22-30) mmol/L BUN 26 H (7-17) mg/dL Creatinine 1.0 (0.7-1.2) mg/dL Glucose 78 (65-100) mg/dL Calcium 8.4 (8.4-10.2) mg/dL Assessment and Plan COPD exacerbation Breast Cancer, mets on chemo therapy Anemia Thrombocytopenia normal EF on echo 2012 no ischemia on MPI 2012 Will get an echocardiogram for LVEF assessment.
[2016-07-10] MEDS ORDERED: DUONEB 0.5 MG-3 MG/3 ML SOLN IH SCH (20:00)
[2016-07-10] MEDS ORDERED: PROVENTIL IH PRN (20:40)
[2016-07-10] MEDS: MILK OF MAGNESIA PO PRN (22:39)
[2016-07-11] MEDS: TYLENOL PO PRN (08:30)
[2016-07-11] MEDS: DUONEB 0.5 MG-3 MG/3 ML SOLN IH SCH ×3 (09:50→21:01)
[2016-07-11] MEDS: ASPIRIN PO SCH (11:07)
[2016-07-11] MEDS: AZULFIDINE PO SCH ×2 (11:08→22:06)
[2016-07-11] MEDS: COREG PO SCH ×2 (11:08→22:11)
[2016-07-11] MEDS: CARAFATE PO SCH ×2 (11:08→22:06)
[2016-07-11] MEDS: DELTASONE PO SCH (11:09)
[2016-07-11] MEDS: FOLVITE PO SCH (11:09)
[2016-07-11] MEDS: OSCAL PO SCH (11:09)
[2016-07-11] MEDS: VITAMIN D3 PO SCH (11:10)
--- NOTE | 2016-07-11 11:11 | Progress Note ---
Assessment and Plan Shortness of breath and hypoxia predominantly due to COPD CXR showing moderate size right pleural effusion (? tumor related) No heart failure signs on exam or CXR Metastatic breast cancer s/p mastectomy and chemotherapy Pancytopenia Chronic LE edema Echocardiogram reports an EF 65-70% Plan: Conservative cardiac management. Subjective Date of service: 07/11/16 Interval history: Patient sitting up in bedside chair. Shortness of breath is less. Objective Vital Signs Temp Pulse Pulse Pulse Pulse Pulse Pulse 07/11/16 10:02 71 71 07/11/16 09:52 07/11/16 09:50 73 73 73 73 07/11/16 08:30 07/11/16 08:21 98.0 F 107 H 07/11/16 06:36 98.0 F 69 07/11/16 00:29 98.1 F 72 07/10/16 23:49 79 07/10/16 23:42 104 H 07/10/16 22:38 83 07/10/16 20:36 98.2 F 72 07/10/16 20:15 76 07/10/16 20:03 07/10/16 20:02 82 07/10/16 16:00 98.1 F 72 07/10/16 15:00 71 07/10/16 12:00 97.9 F 65 Resp Resp Resp Resp Resp BP BP 07/11/16 10:02 18 18 07/11/16 09:52 07/11/16 09:50 18 18 18 18 07/11/16 08:30 20 07/11/16 08:21 20 144/70 07/11/16 06:36 20 153/70 07/11/16 00:29 20 139/68 07/10/16 23:49 07/10/16 23:42 16 07/10/16 22:38 151/83 07/10/16 20:36 22 118/60 07/10/16 20:15 20 07/10/16 20:03 07/10/16 20:02 20 07/10/16 16:00 20 134/70 07/10/16 15:00 07/10/16 12:00 20 141/68 Pulse Ox 07/11/16 10:02 07/11/16 09:52 98 07/11/16 09:50 07/11/16 08:30 07/11/16 08:21 91 07/11/16 06:36 95 07/11/16 00:29 97 07/10/16 23:49 07/10/16 23:42 07/10/16 22:38 07/10/16 20:36 94 07/10/16 20:15 07/10/16 20:03 97 07/10/16 20:02 07/10/16 16:00 99 07/10/16 15:00 07/10/16 12:00 99 - Physical Examination General: No Apparent Distress HEENT: Positive: PERRL, Pallor Neck: Positive: trachea midline. Negative: JVD/HJR Cardiac: Positive: Reg Rate and Rhythm
[2016-07-11] MEDS: LASIX IV SCH ×2 (17:55→22:12)
[2016-07-11] MEDS: MILK OF MAGNESIA PO PRN (22:06)
[2016-07-11] MEDS: SYNTHROID PO SCH (22:12)
--- NOTE | 2016-07-12 02:45 | Progress Note ---
Hospitalist Physical - Constitutional Vitals: Temp Pulse Resp BP Pulse Ox 98.5 F 82 20 139/66 95 07/12/16 00:53 07/12/16 00:53 07/12/16 00:53 07/12/16 00:53 07/12/16 00:53 General appearance: Present: no acute distress Results - Labs CBC & Chem 7: 07/10/16 05:16 07/10/16 05:16 Labs: Laboratory Last Values WBC 2.6 K/mm3 (4.5-11.0) L 07/10/16 05:16 RBC 2.21 M/mm3 (3.65-5.03) L 07/10/16 05:16 Hgb 7.3 gm/dl (10.1-14.3) L 07/10/16 05:16 Hct 23.0 % (30.3-42.9) L 07/10/16 05:16 MCV 104 fl (79-97) H 07/10/16 05:16 MCH 33 pg (28-32) H 07/10/16 05:16 MCHC 32 % (30-34) 07/10/16 05:16 RDW 25.6 % (13.2-15.2) H 07/10/16 05:16 Plt Count 60 K/mm3 (140-440) L 07/10/16 05:16 Add Manual Diff Complete 07/10/16 05:16 Total Counted 100 07/10/16 05:16 Seg Neuts % (Manual) 66.0 % (40.0-70.0) 07/10/16 05:16 Band Neutrophils % 12.0 % 07/10/16 05:16 Lymphocytes % (Manual) 15.0 % (13.4-35.0) 07/10/16 05:16 Reactive Lymphs % (Man) 0 % 07/10/16 05:16 Monocytes % (Manual) 6.0 % (0.0-7.3) 07/10/16 05:16 Eosinophils % (Manual) 1.0 % (0.0-4.3) 07/10/16 05:16 Basophils % (Manual) 0 % (0.0-1.8) 07/10/16 05:16 Metamyelocytes % 0 % 07/10/16 05:16 Myelocytes % 0 % 07/10/16 05:16 Promyelocytes % 0 % 07/10/16 05:16 Blast Cells % 0 % 07/10/16 05:16 Nucleated RBC % Not Reportable 07/10/16 05:16 Seg Neutrophils # Man 1.7 K/mm3 (1.8-7.7) L 07/10/16 05:16 Band Neutrophils # 0.3 K/mm3 07/10/16 05:16 Lymphocytes # (Manual) 0.4 K/mm3 (1.2-5.4) L 07/10/16 05:16 Abs React Lymphs (Man) 0.0 K/mm3 07/10/16 05:16 Monocytes # (Manual) 0.2 K/mm3 (0.0-0.8) 07/10/16 05:16 Eosinophils # (Manual) 0.0 K/mm3 (0.0-0.4) 07/10/16 05:16 Basophils # (Manual) 0.0 K/mm3 (0.0-0.1) 07/10/16 05:16 Metamyelocytes # 0.0 K/mm3 07/10/16 05:16 Myelocytes # 0.0 K/mm3 07/10/16 05:16 Promyelocytes # 0.0 K/mm3 07/10/16 05:16 Blast Cells # 0.0 K/mm3 07/10/16 05:16 WBC Morphology Not Reportable 07/10/16 05:16 Hypersegmented Neuts Not Reportable 07/10/16 05:16 Hyposegmented Neuts Not Reportable 07/10/16 05:16 Hypogranular Neuts Not Reportable 07/10/16 05:16 Smudge Cells Not Reportable 07/10/16 05:16 Toxic Granulation Not Reportable 07/10/16 05:16 Toxic Vacuolation Not Reportable 07/10/16 05:16 Dohle Bodies Not Reportable 07/10/16 05:16 Pelger-Huet Anomaly Not Reportable 07/10/16 05:16 Sloane Rods Not Reportable 07/10/16 05:16 Platelet Estimate Not Reportable 07/10/16 05:16 Clumped Platelets Not Reportable 07/10/16 05:16 Plt Clumps, EDTA Not Reportable 07/10/16 05:16 Large Platelets Not Reportable 07/10/16 05:16 Giant Platelets Not Reportable 07/10/16 05:16 Platelet Satelliting Not Reportable 07/10/16 05:16 Plt Morphology Comment Not Reportable 07/10/16 05:16 RBC Morphology Not Reportable 07/10/16 05:16 Dimorphic RBCs Not Reportable 07/10/16 05:16 Polychromasia Not Reportable 07/10/16 05:16 Hypochromasia 1+ 07/10/16 05:16 Poikilocytosis Not Reportable 07/10/16 05:16 Anisocytosis 2+ 07/10/16 05:16 Microcytosis Not Reportable 07/10/16 05:16 Macrocytosis Not Reportable 07/10/16 05:16 Spherocytes Not Reportable 07/10/16 05:16 Pappenheimer Bodies Not Reportable 07/10/16 05:16 Sickle Cells Not Reportable 07/10/16 05:16 Target Cells Not Reportable 07/10/16 05:16 Tear Drop Cells Not Reportable 07/10/16 05:16 Ovalocytes Not Reportable 07/10/16 05:16 Helmet Cells Not Reportable 07/10/16 05:16 [place] Bodies Not Reportable 07/10/16 05:16 [place] Rings Not Reportable 07/10/16 05:16 [place] Cells Not Reportable 07/10/16 05:16 Bite Cells Not Reportable 07/10/16 05:16 Crenated Cell Not Reportable 07/10/16 05:16 Elliptocytes Not Reportable 07/10/16 05:16 Acanthocytes (Spur) Not Reportable 07/10/16 05:16 Rouleaux Not Reportable 07/10/16 05:16 Hemoglobin C Crystals Not Reportable 07/10/16 05:16 Schistocytes Not Reportable 07/10/16 05:16 Malaria parasites Not Reportable 07/10/16 05:16 Johnson Bodies Not Reportable 07/10/16 05:16 Hem Pathologist Commnt No 07/10/16 05:16 PT 15.0 Sec. (12.2-14.9) H 07/09/16 18:19 INR 1.19 (0.87-1.13) H 07/09/16 18:19 APTT 31.2 Sec. (24.2-36.6) 07/09/16 18:19 Sodium 140 mmol/L (137-145) 07/10/16 05:16 Potassium 4.2 mmol/L (3.6-5.0) 07/10/16 05:16 Chloride 103.6 mmol/L (98-107) 07/10/16 05:16 Carbon Dioxide 28 mmol/L (22-30) 07/10/16 05:16 Anion Gap 13 mmol/L 07/10/16 05:16 BUN 26 mg/dL (7-17) H 07/10/16 05:16 Creatinine 1.0 mg/dL (0.7-1.2) 07/10/16 05:16 Estimated GFR 54 ml/min 07/10/16 05:16 BUN/Creatinine Ratio 26.00 % 07/10/16 05:16 Glucose 78 mg/dL (65-100) 07/10/16 05:16 POC Glucose 97 (70-105) 07/10/16 22:06 Calcium 8.4 mg/dL (8.4-10.2) 07/10/16 05:16 Iron 20 ug/dL (37-170) L 07/09/16 20:53 TIBC 264.60 mcg/dL (250-450) 07/09/16 20:53 % Saturation 7.56 % 07/09/16 20:53 Transferrin 189 mg/dl (192-382) L 07/09/16 20:53 Troponin T < 0.010 ng/mL (0.00-0.029) 07/09/16 18:19 NT-Pro-B Natriuret Pep 1293 pg/mL (0-900) H 07/09/16 18:19 Blood Type AB POSITIVE 07/09/16 20:53 Antibody Screen Negative 07/09/16 20:53
[2016-07-12] MEDS: LASIX IV SCH (05:22)
[2016-07-12] MEDS: SYNTHROID PO SCH (05:22)
[2016-07-12 06:06] LABS: Hematocrit 24.7 % (30.3-42.9); Hemoglobin 7.7 gm/dl (10.1-14.3)
[2016-07-12] MEDS: DUONEB 0.5 MG-3 MG/3 ML SOLN IH SCH ×2 (07:39→16:13)
--- NOTE | 2016-07-12 10:09 | Progress Note ---
Assessment and Plan Shortness of breath and hypoxia predominantly due to COPD CXR showing moderate size right pleural effusion No heart failure signs on exam or CXR Metastatic breast cancer s/p mastectomy and chemotherapy Pancytopenia Chronic LE edema Echocardiogram reports an EF 65-70% Plan: Conservative cardiac management. Subjective Date of service: 07/12/16 Interval history: Patient appears comfortable. She reports shortness of breath is less. Objective Vital Signs Temp Pulse Pulse Pulse Pulse Pulse Pulse 07/12/16 08:00 97.7 F 78 07/12/16 07:57 76 07/12/16 07:36 78 07/12/16 04:54 98.2 F 74 07/12/16 03:04 07/12/16 03:03 74 07/12/16 00:53 98.5 F 82 07/11/16 22:11 74 07/11/16 22:00 07/11/16 21:12 74 07/11/16 20:52 97.9 F 67 07/11/16 20:50 72 07/11/16 16:00 97.8 F 69 07/11/16 14:29 74 74 07/11/16 14:17 77 77 07/11/16 12:00 97.6 F 68 Resp Resp Resp Resp BP BP Pulse Ox 07/12/16 08:00 24 164/72 95 07/12/16 07:57 20 07/12/16 07:36 20 95 07/12/16 04:54 20 129/63 96 07/12/16 03:04 95 07/12/16 03:03 07/12/16 00:53 20 139/66 95 07/11/16 22:11 125/72 07/11/16 22:00 97 07/11/16 21:12 20 07/11/16 20:52 20 151/72 97 07/11/16 20:50 18 07/11/16 16:00 20 166/77 94 07/11/16 14:29 18 18 07/11/16 14:17 18 18 07/11/16 12:00 20 138/78 99 - Physical Examination General: No Apparent Distress HEENT: Positive: PERRL Neck: Positive: trachea midline Cardiac: Positive: Reg Rate and Rhythm Lungs: Positive: Decreased Breath Sounds Neuro: Positive: Grossly Intact - Labs and Meds CBC 07/12/16 Range/Units 04:56 Hgb 7.7 L (10.1-14.3) gm/dl Hct 24.7 L (30.3-42.9) %
--- NOTE | 2016-07-12 10:52 | Discharge Summary ---
Providers - Providers Date of Admission: 07/09/16 22:33 Date of discharge: 07/12/16 Attending physician: DERIAN FERNANDES 07/10/16 00:21 Consult to Physician [CONS] Routine Consulting Provider: ORLIN ROBERT Reason For Exam: chf Notified:: executive secretary pl call Primary care physician: TRANSIT DEPARTMENT CLERK Hospitalization Condition: Good Disposition: DISCHARGED TO HOME OR SELFCARE - Discharge Diagnoses (1) COPD exacerbation Status: Acute (2) Acute respiratory failure Status: Acute Qualifiers: Respiratory failure complication: R Exam - Constitutional Vitals: Temp Pulse Resp BP Pulse Ox 97.7 F 78 24 164/72 95 07/12/16 08:00 07/12/16 08:00 07/12/16 08:00 07/12/16 08:00 07/12/16 08:00 Plan Activity: no restrictions Diet: low fat, low cholesterol, low salt Additional Instructions: 1.Follow up with PCP in 1 week. 2.Repeat CXR in 1 week to be followed by PCP. 3.Follow up with Oncology in 1 week Follow up with: PRIMARY CARE, [Primary Care Provider] - 7 Days Prescriptions: Albuterol Sulfate [Ventolin HFA] 2 puff IH Q4H PRN #1 pump PRN Reason: Shortness Of Breath Carvedilol [Coreg] 3.125 mg PO BID #60 tablet Prednisone [predniSONE 5 mg (6-Day Pack, 21 Tabs)] 5 mg PO .TAPER #1 tab.pk
[2016-07-12] MEDS: FOLVITE PO SCH (11:39)
[2016-07-12] MEDS: OSCAL PO SCH (11:39)
[2016-07-12] MEDS: ASPIRIN PO SCH (11:39)
[2016-07-12] MEDS: DELTASONE PO SCH (11:40)
[2016-07-12] MEDS: CARAFATE PO SCH (11:40)
[2016-07-12] MEDS: COREG PO SCH (11:41)
[2016-07-12] MEDS: TYLENOL PO PRN (11:47)
[2016-07-12] MEDS: AZULFIDINE PO SCH (11:48)
[2016-07-12 13:25] VITALS: BP 148/72
== END 2016-07-12 18:59 | disposition home or self-care (01) | DRG 291 ==
LOC: ED 17:06 → 4A 22:33
PROVIDERS: ADMIT Internal Medicine; ATTEND Internal Medicine
DX: I11.0 Hypertensive heart disease with heart failure (principal); J96.01 Acute respiratory failure with hypoxia; J44.1 Chronic obstructive pulmonary disease with (acute) exacerbation; D61.818 Other pancytopenia; I50.31 Acute diastolic (congestive) heart failure; C50.919 Malignant neoplasm of unspecified site of unspecified female breast; M81.0 Age-related osteoporosis without current pathological fracture; E03.9 Hypothyroidism, unspecified; F17.210 Nicotine dependence, cigarettes, uncomplicated; I25.10 Atherosclerotic heart disease of native coronary artery without angina pectoris; R60.0 Localized edema; N28.9 Disorder of kidney and ureter, unspecified; D64.9 Anemia, unspecified; Z90.12 Acquired absence of left breast and nipple; Z79.82 Long term (current) use of aspirin; Z82.49 Family history of ischemic heart disease and other diseases of the circulatory system; Z85.3 Personal history of malignant neoplasm of breast
CPT/HCPCS: 36415; 71020; 80048; 82962; 83550; 83880; 84484; 85007; 85014; 85018; 85025; 85610; 85730; 86850; 86900; 86901; 87040; 93005; 93010; 93306; 94640; 94760; 96365; 99406; J1940; J1956; J2920; J7512